=== PATIENT | male | born 2000 | race Hispanic/Latino ===

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

== ENCOUNTER 2018-12-17 21:22 | Emergency (ER) | payer SELFPAY ==
[2018-12-17] MEDS ORDERED: Ketorolac Tromethamine 30 MG/ML VIAL ONE (22:39)
[2018-12-17] MEDS ORDERED: Cyclobenzaprine 10 MG TAB ONE ×2 (22:39)
--- NOTE | 2018-12-17 23:02 | RAD ---
LUMBAR SPINE THREE VIEWS: HISTORY: Low back pain. FINDINGS: No fracture, subluxation, or bony destruction is seen. POS: [facility]
== END 2018-12-17 23:17 | disposition home or self-care (01) ==
LOC: ERS 21:22
DX: M54.5 Low back pain (principal); F17.220 Nicotine dependence, chewing tobacco, uncomplicated
CPT/HCPCS: 72100; 96372; J1885

== ENCOUNTER 2020-08-20 09:08 | Emergency (ER) | payer SELFPAY ==
[2020-08-20] MEDS ORDERED: Proparacaine 0.5% Opth 15 ML BOT ONE (09:53)
[2020-08-20] MEDS ORDERED: Fluorescein Opthalmic Strip ONE (09:53)
== END 2020-08-20 10:20 | disposition home or self-care (01) ==
LOC: ERS 09:08
DX: H10.9 Unspecified conjunctivitis (principal)
CPT/HCPCS: 99282